=== PATIENT | male | born 1970 | race Caucasian/White ===

== ENCOUNTER 2016-12-10 17:23 | Emergency (ER) | payer SELFPAY ==
[~2016-12-10] VITALS: Ht 170.2 cm; Wt 68.0 kg
[2016-12-10 17:26] VITALS: BP 144/95; PULSE 92; RESP 18; TEMP 98.8; O2SAT 99
--- NOTE | 2016-12-10 17:30 | NUR ---
PT. TO [facility] [facility] ACCOMPANIED BY [employer], ASSUMED PT. CARE
--- NOTE | 2016-12-10 17:35 | NUR ---
PT. TO ER Hiram [facility] [employer] C/O NAUSEA, STATES HE HAS BEEN FEELING NAUSEOUS FOR PAST TWO HOURS, DENIES N/V/D DENIES Hx OF FALL, STATES NAUSEA IS A PROBLEM FOR PAST 20 YEARS NEVER BEEN SEEN OR TREATED BY A PCP. CLEAR SPEECH, FOLLOWS COMMANDS
--- NOTE | 2016-12-10 17:36 | NUR ---
dR. RYAN AT CHAIR SIDE EXAMINING THE PT.
--- NOTE | 2016-12-10 17:40 | NUR ---
Patient given written and verbal discharge instructions and verbalizes understanding. ER MD Dr. Danielson discussed with patient the results and treatment provided. Patient in stable condition. ID arm band no Rx given. Patient educated on pain management and to follow up with PMD. Pain Scale 0/10 Opportunity for questions provided and answered.
[2016-12-10 17:53] VITALS: BP 129/87; PULSE 89; RESP 18; TEMP 98.8; O2SAT 99
== END 2016-12-10 17:40 ==
LOC: SED 17:23
DX: Z02.89 Encounter for other administrative examinations (principal); R11.0 Nausea
CPT/HCPCS: 99283